=== PATIENT | female | born 1955 | race Caucasian/White ===

== ENCOUNTER 2018-12-10 10:30 | Outpatient (CLI) | payer OTHER | END 2018-12-10 20:19 | disposition home or self-care (01) | LOC: SMI 10:30 | DX: M47.817 Spondylosis without myelopathy or radiculopathy, lumbosacral region (principal); M48.07 Spinal stenosis, lumbosacral region; M12.9 Arthropathy, unspecified | CPT/HCPCS: 72148 ==